=== PATIENT | male | born 1945 | race Caucasian/White ===

== ENCOUNTER 2016-12-08 | Inpatient (IN) | payer MEDICARE ==
[2016-12-08 00:25] LABS: ABG CO2 ARTERIAL 24 mmol/L (21-27); ARTERIAL BLD GAS O2 SATURATION 99 % (95-98); ARTERIAL BLOOD GAS PCO2 58 mmHg (32-45); ARTERIAL PO2 227 mmHg (70-100); BICARBONATE 22 mmol/L (21-28); BLOOD GAS BASE EXCESS -7 mM/L (-/+3); PH 7.21 Units (7.35-7.45)
[2016-12-08 02:21] LABS: ABG CO2 ARTERIAL 24 mmol/L (21-27); ARTERIAL BLD GAS O2 SATURATION 92 % (95-98); ARTERIAL BLOOD GAS PCO2 60 mmHg (32-45); ARTERIAL PO2 80 mmHg (70-100); BICARBONATE 22 mmol/L (21-28); BLOOD GAS BASE EXCESS -7 mM/L (-/+3)
[2016-12-08] MEDS ORDERED: CARVEDILOL25 M1 PO (02:52)
[2016-12-08] MEDS ORDERED: PRINIVIL5 M1 PO (02:53)
[2016-12-08] MEDS ORDERED: POTASSIUM CHLO20 ME3 PO (02:54)
[2016-12-08] MEDS ORDERED: ALDACTONE25 M1 PO (02:55)
[2016-12-08 04:39] LABS: HCT-HEMATOCRIT 52.1 % (36.0-53.5); HGB-HEMOGLOBIN 17.8 gm/dl (13.5-17.0); IMMATURE GRANULOCYTES ABSOLUTE 0.01 tho/cmm (0-0.03); IMMATURE GRANULOCYTES PERCENT 0.2 % (0-0.3); LYMPH % 9.8 % (20-45); LYMPH ABSOLUTE COUNT 0.6 tho/cmm (0.8-4.5); MCH (MEAN CORPUSCULAR HGB) 33.6 pg (28.0-32.0); MCHC MEAN CORPUSCULAR HGB CONC 34.2 % (32.0-36.0); MCV (MEAN CELL VOLUME) 98.3 fl (82.0-96.0); MONO % 6.7 % (0-12); MONOCYTE ABSOLUTE COUNT 0.4 tho/cmm (0.0-1.2); NEUTROPHIL ABSOLUTE COUNT 5.3 tho/cmm (1.6-8.0); NEUTROPHIL-AUTOMATED 5.3 tho/cmm (1.6-8.0); NEUTROPHILS % 83.3 % (40-80); PLATELET COUNT 89 tho/cmm (150-450); RED CELL DISTRIBUTION WIDTH 13.3 % (12.4-16.4); WHITE BLOOD COUNT 6.4 tho/cmm (4.0-10.0)
[2016-12-08 04:41] LABS: INR 1.2 INR (0.9-1.1); PROTHROMBIN TIME 14.1 SECONDS (9.0-13.6)
[2016-12-08 05:08] LABS: BLOOD UREA NITROGEN 22 mg/dl (6-24); CALCIUM 8.5 mg/dl (8.5-10.5); CARBON DIOXIDE-VENOUS 25 mmol/L (22-32); CHLORIDE 104 mmol/l (96-110); CREATININE 1.35 mg/dl (0.60-1.30); GLUCOSE 116 mg/dL (70-110); SODIUM 138 mmol/L (135-145); eGFR VALUE FOR BLACK 61 mL/Min
[2016-12-08 05:27] LABS: ANION GAP 14 mmol/L (0-20); POTASSIUM 4.8 mmol/L (3.7-5.1)
[2016-12-08 05:31] LABS: ABG CO2 ARTERIAL 23 mmol/L (21-27); ARTERIAL BLD GAS O2 SATURATION 99 % (95-98); BICARBONATE 21 mmol/L (21-28); BLOOD GAS BASE EXCESS -4 mM/L (-/+3); PH 7.34 Units (7.35-7.45)
[2016-12-08 05:32] LABS: ARTERIAL BLOOD GAS PCO2 40 mmHg (32-45); ARTERIAL PO2 220 mmHg (70-100)
--- NOTE | 2016-12-08 15:37 | NUR ---
12/08 829: CENTRAL LINE PLACED INTO RIJ BY DR MARTIN IN ROOM. PT UNSTABLE - LEVOPHED AND DOBUTAMINE STARTED. 12/08 929 - PATIENTS SON IN ROOM (DENNY) UPDATED ON PATIENT STATUS. DENNY STATES "MY DAD WOULDN'T WANT ANY OF THIS" "MY DAD NEVER WANTED ANY LIFE SUPPORT". EXPLAINED WITHDRAWAL OF CARE PROCESS/ COMPASSIONATE EXTUBATION TO SON DENNY. DENNY ON BOARD WITH MOVING FORWARD IN WITHDRAWING CARE. DR MARTIN, DR FAULKNER, AND DR MACK NOTIFIED OF THIS DECISION. COMPASSIONATE EXTUBATION DONE AT 1110. LEVOPHED, DOBUTAMINE BOTH SHUT OFF IMMEDIATELY AFTER EXTUBATION. TRANSFERRED TO GENERAL CARE FLOOR ROOM 545 AT 1130.
== END 2016-12-09 13:40 | disposition expired | DRG 64 ==
LOC: CCU → 5WF 12:00
PROVIDERS: Internal Medicine; Registered Nurse; ADMIT Hospitalist
PROC: 05HM33Z Insertion of Infusion Device into Right Internal Jugular Vein, Percutaneous Approach (ICD-10-PCS; principal; 2016-12-08)
PROC: 5A1935Z Respiratory Ventilation, Less than 24 Consecutive Hours (ICD-10-PCS; 2016-12-08)
DX: I63.9 Cerebral infarction, unspecified (principal); J96.01 Acute respiratory failure with hypoxia; R57.0 Cardiogenic shock; J96.02 Acute respiratory failure with hypercapnia; J69.0 Pneumonitis due to inhalation of food and vomit; I50.43 Acute on chronic combined systolic (congestive) and diastolic (congestive) heart failure; N17.9 Acute kidney failure, unspecified; G81.94 Hemiplegia, unspecified affecting left nondominant side; E87.2 Acidosis; J44.9 Chronic obstructive pulmonary disease, unspecified; I25.5 Ischemic cardiomyopathy; Z95.0 Presence of cardiac pacemaker; Z87.891 Personal history of nicotine dependence; Z51.5 Encounter for palliative care; Z66 Do not resuscitate
CPT/HCPCS: J1100; J1250; J1650; J1953; J2060; J2270; J2543; J3010; J7030; P9045